=== PATIENT | male | born 1965 | race Caucasian/White ===

== ENCOUNTER 2018-02-10 09:07 | Day surgery (SDC) | payer BC, OTHER ==
--- NOTE | 2018-02-10 07:39 | HP ---
DATE OF SURGERY: 02/10/2018 HISTORY OF PRESENT ILLNESS: The patient is a 52 year-old with raised area on his scalp enlarging some. He is in need of excisional biopsy, possible flap, possible graft. PAST MEDICAL HISTORY: PAST SURGICAL HISTORY: Sinus surgery, tonsillectomy, adenoidectomy, knee surgery and anal fissure surgery in the past. MEDICATIONS: Trazodone, Wellbutrin, Strattera, Hytrin, fish oil, multivitamins. ALLERGIES: NKDA. FAMILY HISTORY: Diabetes, hypertension. SOCIAL HISTORY: No smoking. Reports social alcohol use denies abuse. REVIEW OF SYSTEMS: Twelve systems reviewed per admission assessment. No chest pain or palpitations other systems negative or noncontributory as above and per preadmission questionnaire. PHYSICAL EXAMINATION: GENERAL: No acute distress. HEENT: Sclerae nonicteric. NECK: No JVD. CHEST: Clear to auscultation. CVS: Regular rate and rhythm. ABDOMEN: Soft. No peritoneal signs. EXTREMITIES: No significant edema. NEURO: Alert, moving extremities symmetrically. No gross motor deficits noted. SKIN: He has a lesion on his scalp he had removed in the past and has recurrent scalp lesion in need of excision. IMPRESSION: Recurrent scalp lesion in need of excision. I feel he is a candidate. Risks and benefits explained in detail including but not limited to bleeding or infection, risk of wound dehiscence possibly requiring healing by secondary intent, possible need for flap or skin graft, general risk of anesthesia deep venous thrombosis, pulmonary embolism, pneumonia, aches, pains possibility of burning or numbness possibly adjunct faculty for medical terminology or chronic in nature, possibility should there be malignancy possible need for wider excision other procedures or treatment. He understands and agrees to the planned procedure, will proceed with excisional biopsy of recurrent scalp lesion possible skin graft, possible flap as an outpatient.
[~2018-02-10 09:07] MED LIST: Lactated Ringers 1,000 ML IV ONE; Lactated Ringers 1,000 ML IV SCH; Sensorcaine 0.25% 10 ML ONE
[2018-02-10] MEDS ORDERED: DIPRIVAN 200 MG/20 ML IV ONE (09:08)
[2018-02-10] MEDS ORDERED: Versed 2 MG/2 ML Injection IV ONE (09:08)
[2018-02-10] MEDS ORDERED: Zofran 4 MG/2 ML VIAL IV ONE (09:08)
[2018-02-10] MEDS ORDERED: SUBLIMAZE 100 MCG/2 ML IV ONE (09:08)
[2018-02-10] MEDS ORDERED: Decadron 4 MG INJ IV ONE (09:08)
[2018-02-10] MEDS ORDERED: Lactated Ringers 1,000 ML IV ONE (09:25)
[2018-02-10] MEDS ORDERED: MINERAL OIL LIGHT 10 ML FOR SURGERY ONE (10:48)
[2018-02-10] MEDS ORDERED: KEFZOL 1 GM ONE (10:48)
[2018-02-10] MEDS ORDERED: BACIGUENT 30 GM ONE (10:49)
[2018-02-10] MEDS ORDERED: MORPHINE SULFATE 10 MG/ML ONE (12:19)
[2018-02-10] MEDS ORDERED: SUBLIMAZE 100 MCG/2 ML ONE (12:19)
[2018-02-10 14:05] VITALS: O2SAT 94
[2018-02-10 15:10] VITALS: BP 131/75; PULSE 59
--- NOTE | 2018-02-11 09:33 | OP ---
SURGERY DATE/TIME: 02/10/2018 1119 PREOPERATIVE DIAGNOSIS: Recurrent exophytic enlarging scalp lesion. POSTOPERATIVE DIAGNOSIS: Recurrent exophytic enlarging scalp lesion. PROCEDURE: Excision and biopsy recurrent enlarging scalp lesion (3 x 2.4 cm) with complex closure with rotational and advancement flaps. SURGEON: Dr. Doug Barba. ANESTHESIA: General. ESTIMATED BLOOD LOSS: Minimal. INDICATIONS: As noted above. Risks and benefits explained in detail and not limited to and consent obtained. The site is confirmed and marked in preoperative holding area with the patient. DESCRIPTION OF PROCEDURE AND FINDINGS: The patient is taken to the operating room. After official time out and no disagreement with planned procedure, he was prepped and draped in usual sterile fashion. Under the brighter OR lights there was a little smaller exophytic area followed by raised area. A halo around the area it was felt this should be excised to so dissecting down to normal scalp appearing skin around this area. Dissection carried down to the underlying normal subcu fat and fascia. Small perforators controlled with 3-0 Vicryl and suture ligature. Good hemostasis noted. Specimen is passed off. It measured about 3 cm long by about 2.4 cm wide. There was a small sliver to allow for the flaps rotation advancement of posterior margin was then taken and passed off. Otherwise it was felt better to have a combination of rotational advancement flaps to close this moderately large defect in this individual. Undermining was accomplished on all sides with a segment rotated anteriorly, rotational flap created with more posterior local advancement flap created advancing the tissue back towards the midline, this took some time was slowly and carefully accomplished with interrupted 3-0 Vicryl closing the deeper subcu and deeper dermis. The skin was closed with a combination of vertical mattress 3-0 and 4-0, interrupted 3-0 and 4-0 Prolene in a tension free manner. Good hemostasis noted. Some antibiotic ointment and head wrap were to be given for hemostasis. The patient tolerated the procedure well. It was felt this was the best option rather than a skin graft that would not regrow hair. At this point path pending. Findings discussed with the family out in the waiting area.
== END 2018-02-10 14:15 | disposition home or self-care (01) ==
LOC: SDC 09:07
PROVIDERS: ATTEND Surgery
PROC: 0JX00ZC Transfer Scalp Subcutaneous Tissue and Fascia with Skin, Subcutaneous Tissue and Fascia, Open Approach (ICD-10-PCS; principal; 2018-02-10)
PROC: 0JB00ZZ Excision of Scalp Subcutaneous Tissue and Fascia, Open Approach (ICD-10-PCS; 2018-02-10)
DX: L98.9 Disorder of the skin and subcutaneous tissue, unspecified (principal); R20.8 Other disturbances of skin sensation
CPT/HCPCS: 94250; J0690; J1100; J2250; J2270; J2405; J2704; J3010; A9270-GY

== ENCOUNTER 2024-03-31 21:24 | Emergency (ER) | payer BC, OTHER ==
[2024-03-31 21:42] VITALS: RESP 18; TEMP 98.4; O2SAT 97
--- NOTE | 2024-03-31 22:27 | ERPHSYRPT ---
- History of Present Illness Time Seen by Provider: 03/31/24 22:25 Source: patient Exam Limitations: no limitations Patient Subjective Stated Complaint: pt states that he was playing softball and was running. pt states it felt like a rubber band riped Triage Nursing Assessment: pt came into the er via wheelchair; pt was transferred to bed with standby assist; pt is axo x4; c/o left upper leg pain; pt states 10/10 pain to left leg; strong left pedal pulse; no swelling or bruising present to LLE; limited ROM to LLE; skin PDW; no respiratory distress present; vitals wnl Physician History: The patient presents with a sudden onset of severe pain in the left hamstring area, which he describes as feeling like a rubber band snapping. The pain is localized to the upper part of the posterior thigh and is associated with difficulty in straightening the leg. The patient denies any prior injury to the hamstring. Method of Injury: sports injury Occurred: just prior to arrival Quality: cramping, sharpness, stabbing, throbbing Severity of Pain-Max: severe Severity of Pain-Current: severe Lower Extremities Pain: thigh: left Modifying Factors: Worsens With: movement Associated Symptoms: snapping sensation Allergies/Adverse Reactions: No Known Drug Allergies Allergy (Verified 03/31/24 21:25) Home Medications: Aspirin 81 mg PO DAILY 10/17/15 [History] Multivitamin with Minerals [Daily Vitamin Formula-Minerals] 1 ea PO DAILY 10/17/15 [History] Terazosin HCl 10 mg [Hytrin 10 mg] 10 mg PO DAILY 10/17/15 [History] Trazodone HCl 50 mg PO HS 10/17/15 [History] Hx Tetanus, Diphtheria Vaccination/Date Given: Yes Hx Influenza Vaccination/Date Given: No Hx Pneumococcal Vaccination/Date Given: No Immunizations Up to Date: No Travel Risk - International Travel Have you traveled outside of the country in past 3 weeks: No - Emerging Infectious Disease Are you exhibiting symptoms associated with any current EIDs: No - Review of Systems All Other Systems: Reviewed and Negative - Past Medical History Pertinent Past Medical History: Yes Neurological History: No Pertinent History ENT History: No Pertinent History Cardiac History: No Pertinent History Respiratory History: No Pertinent History Endocrine Medical History: No Pertinent History Musculoskeletal History: No Pertinent History GI Medical History: Diverticulitis History: No Pertinent History Psycho-Social History: Attention Deficit Disorder Male Reproductive Disorders: Prostate Problems - Past Surgical History Past Surgical History: Yes Neuro Surgical History: No Pertinent History Cardiac: No Pertinent History Respiratory: No Pertinent History Gastrointestinal: No Pertinent History Genitourinary: No Pertinent History Musculoskeletal: Orthopedic Surgery Male Surgical History: No Pertinent History Other Surgical History: left knee meniscus surgery,T&A,Anul fistula,sinus surgery - Social History Smoking Status: Former smoker Exposure to second hand smoke: No Drug Use: none Patient Lives Alone: No - Social Determinants of Health Will the patient participate in the screening: Yes Do you worry about a steady place to live?: No Do you have any problems with any of the following?: No known problems In the past 12 months,have you had to go without utilities?: No Transportation Issues: No Has anyone in your support network made you feel unsafe?: No Have you or anyone in your house had to go without enough: No - Nursing Vital Signs Nursing Vital Signs: Initial Vital Signs Temperature 98.4 F 03/31/24 21:25 Pulse Rate 73 03/31/24 21:25 Respiratory Rate 18 03/31/24 21:25 Blood Pressure 136/81 03/31/24 21:25 O2 Sat by Pulse Oximetry 97 03/31/24 21:25 Pain Scale Pain Intensity 8 - Physical Exam SpO2: 97 Comments: Left leg Inspection: + obvious deformity mid posterior thigh, + swelling + ischial tuberosity, midsubstance hamstring TTP ROM limited by pain, especially hip extension and knee extension Strength LE: 3/5 hip flexion, extension, knee flexion, extension Sensation: Subjective normal distal sensation LE Skin: no redness, no warmth, no ecchymosis, no rash - Course Nursing assessment & vital signs reviewed: Yes Ordered Tests: Medication Summary Discontinued Medications Generic Name Dose Route Start Last Admin Trade Name Freq PRN Reason Stop Dose Admin Hydrocodone Bitart/Acetaminophen 1 tab 03/31/24 22:28 03/31/24 22:38 Hydrocodone/Apap 5/325 1 Tab Tablet PO 03/31/24 22:29 1 tab STAT ONE Administration Hydrocodone Bitart/Acetaminophen Confirm 03/31/24 22:31 Hydrocodone/Apap 5/325 1 Tab Tablet Administered 03/31/24 22:32 Dose 1 tab .ROUTE .STK-MED ONE Hydrocodone Bitart/Acetaminophen 2 tab 03/31/24 22:58 03/31/24 23:01 Hydrocodone/Apap 5/325 1 Tab Tablet PO 03/31/24 22:59 2 tab SENT HOME W/ PATIENT ONE Administration Hydrocodone Bitart/Acetaminophen Confirm 03/31/24 23:01 Hydrocodone/Apap 5/325 1 Tab Tablet Administered 03/31/24 23:02 Dose 2 tab .ROUTE .STK-MED ONE Cyclobenzaprine HCl 10 mg 04/01/24 10:00 03/31/24 23:02 Cyclobenzaprine Hcl 10 Mg Tablet PO 05/01/24 09:59 10 mg BID PAYTON Administration Cyclobenzaprine HCl Confirm 03/31/24 23:00 Cyclobenzaprine Hcl 10 Mg Tablet Administered 03/31/24 23:01 Dose 20 mg .ROUTE .STK-MED ONE Methocarbamol 500 mg 03/31/24 22:27 03/31/24 22:38 Methocarbamol 500 Mg Tablet PO 04/30/24 22:26 500 mg QID PRN PRN Administration MUSCLE SPASMS Methocarbamol Confirm 03/31/24 22:36 Methocarbamol 500 Mg Tablet Administered 03/31/24 22:37 Dose 500 mg .ROUTE .STK-MED ONE - Progress Progress: improved Progress Note: Patient likely has a rupture of his proximal hamstring tendon on the left. Patient given Leland and Flexeril for pain control which did improve sxs. Advised to f/u with ortho for MRI to determine extent of injury. Will prescribe same regimen given in ED tonight to pharmacy. Counseled pt/family regarding: diagnosis, need for follow-up Medical Desision Making - Diagnostic Testing Diagnostic test were ordered, analyzed, and reviewed by me: No - Risk of complications The pt has a mod risk of morbidity or mortality based on: Need for prescription drug management - Departure Departure Disposition: Home Clinical Impression: Hamstring tendon rupture, Hamstring muscle strain, Left thigh pain Condition: Good Critical Care Time: No Referrals: ANA LAURA GARIBAY MD [Primary Care Provider] - Follow up/PCP as directed REUBEN WEST NP [NON-STAFF PHY W/O PRIVILEGES] - Follow up/PCP as directed Instructions: Hamstring injury Prescriptions: Hydrocodone/Acetaminophen [Hydrocodone-Acetamin 5-325 mg] 1 tab PO Q4HPRN PRN 3 Days #18 tablet MDD 6 PRN Reason: Pain Cyclobenzaprine HCl 10 mg PO TID PRN 7 Days #21 tablet PRN Reason: Muscle Spasms
[2024-03-31] MEDS ORDERED: NORCO 5/325 MG ONE ×2 (22:31→23:01)
[2024-03-31] MEDS ORDERED: Robaxin ONE (22:36)
[2024-03-31] MEDS: NORCO 5/325 MG PO ONE ×2 (22:38→23:01)
[2024-03-31] MEDS: Robaxin PO PRN (22:38)
[2024-03-31] MEDS ORDERED: Cyclobenzaprine 10 MG ONE (23:00)
[2024-03-31] MEDS: Cyclobenzaprine 10 MG PO SCH (23:02)
[2024-03-31 23:08] VITALS: BP 130/82; PULSE 78
== END 2024-03-31 23:15 | disposition home or self-care (01) ==
LOC: ED 21:24
DX: S76.312A Strain of muscle, fascia and tendon of the posterior muscle group at thigh level, left thigh, initial encounter (principal); X50.9XXA Other and unspecified overexertion or strenuous movements or postures, initial encounter; Y93.64 Activity, baseball; M79.652 Pain in left thigh; Z79.891 Long term (current) use of opiate analgesic; Z79.899 Other long term (current) drug therapy
CPT/HCPCS: 99282; A9270-GY